=== PATIENT | female | born 1985 | race Caucasian/White ===

== ENCOUNTER 2018-08-11 11:39 | Observation (INO) | payer OTHER ==
[2018-08-11 13:19] LABS: Absolute Lymphocytes (CBC) 1.3 K/uL (0.7-4.9); Absolute Monocytes 0.6 K/uL (0.1-1.3); Absolute Neutrophil 5.6 K/uL (1.8-8.0); Basophils % 0.3 % (0-1.3); Eosinophils % 1.3 % (0-4.4); Hematocrit 43.6 % (36.0-45.0); Lymphocytes % 16.8 % (15.3-44.8); MPV 9.3 fL (7.6-11.3); Monocytes % 7.6 % (3.3-12.3); RBC Red Blood Cell Count 4.74 M/uL (3.86-4.86)
[2018-08-11] MEDS ORDERED: NA CHLORIDE 0.9% 1,000 ML ONE (13:26)
[2018-08-11 13:33] LABS: ALT/SGPT 17 U/L (12-78); AST/SGOT 15 U/L (15-37); Albumin 3.9 g/dL (3.4-5.0); Alkaline Phosphatase 66 U/L (45-117); BUN Blood Urea Nitrogen 9 mg/dL (7-18); Bicarbonate 25 mmol/L (21-32); Bilirubin Direct < 0.1 mg/dL (0-0.2); Bilirubin Total 0.3 mg/dL (0.2-1.0); Glucose Level 83 mg/dL (74-106); Potassium 3.8 mmol/L (3.5-5.1); Protein, Total 7.8 g/dL (6.4-8.2); Sodium Level 142 mmol/L (136-145)
[2018-08-11] MEDS ORDERED: WATER FOR INJ,STERILE 0 ML ONE (14:14)
--- NOTE | 2018-08-11 14:23 | ER ---
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 Transition of care: patient was not received from another setting of care. No acute neurological deficit is noted. Onset of symptoms was August 11, 2018. Risk Assessment: Do you want to hurt yourself or someone else? Patient reports no desire to harm self or others. Initial Sepsis Screen: Does the patient meet any 2 criteria? No. Patient's initial sepsis screen is negative. Does the patient have a suspected source of infection? No. Patient's initial sepsis screen is negative. Care prior to arrival: None. 11:41 Method Of Arrival: Ambulatory 11:41 Acuity: ELIAEN 3 Triage Assessment: 11:50 General: Appears in no apparent distress. comfortable, obese, well groomed, Behavior is ae4 calm, cooperative. Pain: Denies pain. Neuro: Level of Consciousness is awake, alert, obeys commands, Oriented to person, place, time, situation, Appropriate for age. Respiratory: Airway is patent Respiratory effort is even, unlabored, Respiratory pattern is regular, symmetrical. 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 - Social history:: The patient lives at home, Smoking status: Patient/guardian denies using tobacco. - Ebola Screening: : Patient negative for fever greater than or equal to 101.5 degrees Fahrenheit, and additional compatible Ebola Virus Disease symptoms Patient denies exposure to infectious person Patient denies travel to an Ebola-affected area in the 21 days before illness onset. Screenin:40 Abuse screen: Denies threats or abuse. Nutritional screening: No deficits noted. ae4 Tuberculosis screening: No symptoms or risk factors identified. Fall Risk Fall in past 12 months (25 points). Secondary diagnosis (15 points) Patient deb hx of MS.. IV access (20 points). Ambulatory Aid- Crutches/Cane/Walker (15 pts). Gait- Weak (10 pts.). Mental Status- Oriented to own ability (0 pts). Assessment: 16:09 Reassessment: Patient states IV to the right AC is painful. Redness near insertion site ae4 noted. Pain upon flushing at insertion site. IV removed and new IV placed to left AC. Patient denies pain at this time. Patient states feeling better. 16:57 Reassessment: Called 2nd floor to give report to receiving nurse, spoke to Akiko. Akiko silverman4 states Kamila, the receiving nurse will need to return call shortly. 16:59 Reassessment: Patient appears in no apparent distress at this time. Patient and/or ae4 family updated on plan of care and expected duration. Pain level reassessed. 17:32 Reassessment: Report called to Kamila receiving nurse. ae4 Vital Signs: 11:48 BP 124 / 87; Pulse 106; Resp 18; Temp 98.4(O); Pulse Ox 100% on R/A; Weight 122.47 kg; Height 5 ft. 9 in. (175.26 cm); Pain 0/10; 13:42 BP 106 / 70; Pulse 104; Resp 16; Pulse Ox 100% on R/A; ae4 16:16 BP 127 / 91; Pulse 93; Resp 15; Pulse Ox 99% on R/A; ae4 17:48 BP 116 / 85; Pulse 113; Resp 19; Pulse Ox 100% on R/A; ae4 11:48 Body Mass Index 39.87 (122.47 kg, 175.26 cm) NIH Stroke Scale Scores: 14:23 NIHSS Score: 0 gs ED Course: 11:41 Patient arrived in ED. 11:44 Triage completed. 11:49 EKG done, by instrumentation tech. reviewed by Eulalio Carmen MD. at1 11:50 Arm band placed on right wrist. hj 12:42 Henry Dupree, MARK is Primary Nurse. ae4 12:42 Eulalio Carmen MD is Attending Physician. gs 12:55 Placed in gown. Bed in low position. Call light in reach. Side rails up X 1. Cardiac ae4 monitor on. Pulse ox on. NIBP on. 12:59 Inserted saline lock: 22 gauge in right antecubital area, using aseptic technique. jb1 Blood collected. 14:21 Edelmira Sauer MD is Hospitalizing Provider. gs 14:55 Patient moved to MRI. ae4 16:09 Inserted saline lock: 22 gauge in left antecubital area, using aseptic technique. ae4 17:34 Patient admitted, IV remains in place. ae4 17:48 No provider procedures requiring assistance completed. ae4 Administered Medications: 13:17 Drug: NS 0.9% 1000 ml Route: IV; Rate: 125 ml/hr; Site: right antecubital; ae4 14:33 Drug: SOLU-Medrol 1000 mg Route: IVP; Site: right antecubital; ae4 22:21 Follow up: Response: No adverse reaction ae4 Outcome: 14:22 Decision to Hospitalize by Provider. gs 17:49 Admitted to Med/surg ae4 17:49 Condition: stable 17:49 Condition: improved 17:49 Discharge instructions given to patient, significant other, Instructed on the need for admit, Demonstrated understanding of instructions. 17:51 Patient left the ED. ae4 NIH Stroke Scale - NIH Stroke Score Date: 08/11/2018 Time: 14:23 Total Score = 0 1a. Level of Consciousness (LOC) - 0(Alert) 1b. Level of Consciousness (LOC) (Year \T\ Age) - 0(Both) 1c. LOC Commands (Open \T\ Closes Eyes/Associate Professor [employer] Media Arts) - 0(Both) 2. Best Gaze (Lateral Gaze Paresis) - 0(Normal) 3. Visual Field Loss - 0(No visual loss) 4. Facial Palsy - 0(Normal) 5a. Left Arm: Motor (10-second hold) - 0(No drift) 5b. Right Arm: Motor (10-second hold) - 0(No drift) 6a. Left Leg: Motor (5-second hold - always test supine) - 0(No drift) 6b. Right Leg: Motor (5-second hold - always test supine) - 0(No drift) 7. Limb Ataxia (finger/nose \T\ heel/ellis - test with eyes open) - 0(Absent) 8. Sensory Loss (pinprick arms/legs/face) - 0(Normal) 9. Best Language: Aphasia (description/naming/reading) - 0(No aphasia) 10. Dysarthria (speech clarity - read or repeat words) - 0(Normal) 11. Extinction and Inattention (visual/tactile/auditory/spatial/personal) - 0(No abnormality) Initials: Signatures: Sunil Adams jb1 Isabella Yañez, facing machine operator EKG Tat1 Ede Dan RN RN Eulalio Carmen MD MD Henry Dupree RN RN ae4 Corrections: (The following items were deleted from the chart) 11:50 11:41 Presenting complaint: Patient states: i think i have an MS flare up, Saturday, it started it twinges on my arms and mis coordination, dizzy and slurred speech; hx of MS; denies fever and chills; 11:51 11:41 Presenting complaint: Patient states: i think i have an MS flare up, Saturday, it started it twinges on my arms and mis coordination, dizzy and slurred speech; hx of MS; denies fever and chills; 11:53 11:41 Presenting complaint: Patient states: i think i have an MS flare up, Saturday, it started it twinges on my arms and mis coordination, dizzy and slurred speech; hx of MS; denies fever and chills; 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 Akiko states Kamila, the receiving nurse will need to return call shortly. ae4
--- NOTE | 2018-08-11 14:23 | EDPHYS ---
Physician Documentation [facility] Name: Emmanuelle Spencer Age: 33 yrs Sex: Female : 1985 Arrival Date: 08/11/2018 Time: 11:41 Bed 15 Private MD: ED Physician Eulalio Carmen HPI: 08/11 14:23 This 33 yrs old Female presents to ER via Ambulatory with complaints of gs Slurred Speech, Dizziness. 14:23 Onset: The symptoms/episode began/occurred 1 week(s) ago. Associated signs and gs symptoms: Pertinent negatives: fever. Associated signs and symptoms: Pertinent positives: altered mental status, non now, per intermittent confusion. Severity of symptoms: At their worst the symptoms were severe in the emergency department the symptoms have improved markedly. The patient has experienced similar episodes in the past, multiple times. 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 - Social history:: The patient lives at home, Smoking status: Patient/guardian denies using tobacco. - Ebola Screening: : Patient negative for fever greater than or equal to 101.5 degrees Fahrenheit, and additional compatible Ebola Virus Disease symptoms Patient denies exposure to infectious person Patient denies travel to an Ebola-affected area in the 21 days before illness onset. ROS: 14:23 All other systems are negative. gs Exam: 14:23 Head/Face: Normocephalic, atraumatic. Eyes: Pupils equal round and reactive to light, gs extra-ocular motions intact. Lids and lashes normal. Conjunctiva and sclera are non-icteric and not injected. Cornea within normal limits. Periorbital areas with no swelling, redness, or edema. ENT: Nares patent. No nasal discharge, no septal abnormalities noted. Tympanic membranes are normal and external auditory canals are clear. Oropharynx with no redness, swelling, or masses, exudates, or evidence of obstruction, uvula midline. Mucous membranes moist. Neck: Trachea midline, no thyromegaly or masses palpated, and no cervical lymphadenopathy. Supple, full range of motion without nuchal rigidity, or vertebral point tenderness. No Meningismus. Chest/axilla: Normal chest wall appearance and motion. Nontender with no deformity. No lesions are appreciated. Cardiovascular: Regular rate and rhythm with a normal S1 and S2. No gallops, murmurs, or rubs. Normal PMI, no JVD. No pulse deficits. Respiratory: Lungs have equal breath sounds bilaterally, clear to auscultation and percussion. No rales, rhonchi or wheezes noted. No increased work of breathing, no retractions or nasal flaring. Abdomen/GI: Soft, non-tender, with normal bowel sounds. No distension or tympany. No guarding or rebound. No evidence of tenderness throughout. Back: No spinal tenderness. No costovertebral tenderness. Full range of motion. Skin: Warm, dry with normal turgor. Normal color with no rashes, no lesions, and no evidence of cellulitis. MS/ Extremity: Pulses equal, no cyanosis. Neurovascular intact. Full, normal range of motion. Neuro: Awake and alert, GCS 15, oriented to person, place, time, and situation. Cranial nerves II-XII grossly intact. Motor strength 5/5 in all extremities. Sensory grossly intact. Cerebellar exam normal. Normal gait. 14:23 Constitutional: The patient appears alert, awake. Vital Signs: 11:48 BP 124 / 87; Pulse 106; Resp 18; Temp 98.4(O); Pulse Ox 100% on R/A; Weight 122.47 kg; Height 5 ft. 9 in. (175.26 cm); Pain 0/10; 13:42 BP 106 / 70; Pulse 104; Resp 16; Pulse Ox 100% on R/A; ae4 16:16 BP 127 / 91; Pulse 93; Resp 15; Pulse Ox 99% on R/A; ae4 17:48 BP 116 / 85; Pulse 113; Resp 19; Pulse Ox 100% on R/A; ae4 11:48 Body Mass Index 39.87 (122.47 kg, 175.26 cm) NIH Stroke Scale Scores: 14:23 NIHSS Score: 0 MDM: 12:59 Patient medically screened. 14:23 Data reviewed: vital signs, nurses notes, lab test result(s). Physician consultation: Ramone Madrid MD and will see patient in ED. 14:29 ED course: no tpa, no stroke . 08/11 13:01 Order name: CBC with Diff 08/11 13:01 Order name: Basic Metabolic Panel 08/11 13:01 Order name: LFT's 08/11 13:25 Order name: CBC with Automated Diff; Complete Time: 13:34 EDMS 08/11 13:35 Order name: Basic Metabolic Panel; Complete Time: 13:34 EDMS 08/11 13:35 Order name: Liver (Hepatic) Function; Complete Time: 13:34 EDMS 08/11 14:15 Order name: Urinalysis ae4 08/11 14:29 Order name: Urinalysis; Complete Time: 16:16 EDMS 08/11 14:30 Order name: Urine Dipstick--Ancillary (enter results) 08/11 14:30 Order name: Urine --Ancillary (enter results) 08/11 14:36 Order name: Urine Microscopic Only; Complete Time: 16:16 EDMS 08/11 14:43 Order name: Urine --Ancillary; Complete Time: 16:16 EDMS 08/11 14:43 Order name: Urine Dipstick-Ancillary; Complete Time: 16:16 EDMS 08/11 14:55 Order name: Test, Urine; Complete Time: 16:16 EDMS 08/11 16:00 Order name: MRI; Complete Time: 16:16 EDMS Administered Medications: 13:17 Drug: NS 0.9% 1000 ml Route: IV; Rate: 125 ml/hr; Site: right antecubital; ae4 14:33 Drug: SOLU-Medrol 1000 mg Route: IVP; Site: right antecubital; ae4 22:21 Follow up: Response: No adverse reaction ae4 Disposition: 08/11/18 14:22 Hospitalization ordered by Edelmira Sauer for Observation. Preliminary diagnosis is Multiple sclerosis. - Bed requested for Telemetry/MedSurg (observation). - Status is Observation. ae4 - Condition is Stable. - Problem is new. - Symptoms have improved. UTI on Admission? Yes NIH Stroke Scale - NIH Stroke Score Date: 08/11/2018 Time: 14:23 Total Score = 0 1a. Level of Consciousness (LOC) - 0(Alert) 1b. Level of Consciousness (LOC) (Year \T\ Age) - 0(Both) 1c. LOC Commands (Open \T\ Closes Eyes/Betting Agency Manager) - 0(Both) 2. Best Gaze (Lateral Gaze Paresis) - 0(Normal) 3. Visual Field Loss - 0(No visual loss) 4. Facial Palsy - 0(Normal) 5a. Left Arm: Motor (10-second hold) - 0(No drift) 5b. Right Arm: Motor (10-second hold) - 0(No drift) 6a. Left Leg: Motor (5-second hold - always test supine) - 0(No drift) 6b. Right Leg: Motor (5-second hold - always test supine) - 0(No drift) 7. Limb Ataxia (finger/nose \T\ heel/ellis - test with eyes open) - 0(Absent) 8. Sensory Loss (pinprick arms/legs/face) - 0(Normal) 9. Best Language: Aphasia (description/naming/reading) - 0(No aphasia) 10. Dysarthria (speech clarity - read or repeat words) - 0(Normal) 11. Extinction and Inattention (visual/tactile/auditory/spatial/personal) - 0(No abnormality) Initials: Signatures: Dispatcher [employer] EDMS Rachel Randhawa Henry RN MARK hj Eulalio Carmen MD MD Henry Dupree RN RN ae4 Corrections: (The following items were deleted from the chart) 16:36 14:22 Hospitalization Ordered by Edelmira Sauer MD for Observation. Preliminary bd diagnosis is Multiple sclerosis. Bed requested for Telemetry/MedSurg (observation). Status is Observation. Condition is Stable. Problem is new. Symptoms have improved. UTI on Admission? Yes. 17:51 16:36 08/11/2018 14:22 Hospitalization Ordered by Edelmira Sauer MD for ae4 Observation. Preliminary diagnosis is Multiple sclerosis. Bed requested for Telemetry/MedSurg (observation). Status is Observation. Condition is Stable. Problem is new. Symptoms have improved. UTI on Admission? Yes. bd
[2018-08-11 14:28] LABS: Urine Appearance CLOUDY; Urine Bilirubin NEGATIVE (NEG); Urine Blood NEGATIVE (NEG); Urine Color YELLOW; Urine Glucose NEGATIVE (NEG); Urine Protein NEGATIVE (NEG)
[2018-08-11 14:29] LABS: Urine Microscopic Reflex ORDER UMIC
[2018-08-11 14:36] LABS: Urine Bacteria >50 /HPF (<20); Urine Culture Reflex Order REFLEXED; Urine Mucus 1+ /HPF (NONE SEEN); Urine RBC <5 /HPF (NONE SEEN)
--- NOTE | 2018-08-11 14:38 | P.HP ---
Certification for Inpatient Patient admitted to: Observation With expected LOS: <2 Midnights Practitioner: I am a practitioner with admitting privileges, knowledge of patient current condition, hospital course, and medical plan of care. Services: Services provided to patient in accordance with Admission requirements found in Title 42 Section 412.3 of the Code of Federal Regulations Patient History Date of Service: 08/11/18 Reason for admission: right sided weakness, slurred speech History of Present Illness: Patient is a 33-year-old female with past medical history of Guillain-[place] syndrome and multiple sclerosis who was in her usual state of health until 1 week prior to admission when the patient had symptoms of sinus infection and was treated for ear infection with oral antibiotics for 1 week. Patient now has been experiencing worsening weakness with difficulty holding things in her right hand difficulty finding words and start speech along with intermittent confusion. Patient has been on Tacfidera with good response. Patient contacted primary neurologist today and was recommended to go to the ER for further evaluation and treatment. In the ER her vital signs were stable she was slightly tachycardic. Her workup revealed normal WBC count no electrolyte abnormalities. Patient was then referred for admission. When seen in the ER she was awake alert oriented x3 having word-finding difficulty and slurred speech. 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 - Family History Father -: Hypertension - Social History Smoking Status: Never smoker Alcohol use: No CD- Drugs: No Caffeine use: No Place of Residence: Home Review of Systems 10-point ROS is otherwise unremarkable Neurological: As per HPI Physical Examination - Vital Signs Temperature: 98.4 F Blood Pressure: 124/87 Pulse: 106 Respirations: 18 Pulse Ox (%): 100 - Physical Exam General: Alert, In no apparent distress, Oriented x3, Obese HEENT: Atraumatic, PERRLA, Mucous membr. moist/pink, EOMI, Sclerae nonicteric Neck: Supple, 2+ carotid pulse no bruit, JVD not distended Respiratory: Clear to auscultation bilaterally, Normal air movement Cardiovascular: No edema, Normal pulses, Regular rate/rhythm, Normal S1 S2 Gastrointestinal: Normal bowel sounds, Soft and benign, Non-distended, No tenderness Musculoskeletal: No clubbing, No tenderness Integumentary: No rashes, No erythema Neurological: Normal tone, Cranial nerves 3-12 intact, Normal affect, Abnormal gait, Abnormal speech, Abnormal strength - Studies Laboratory Data (last 24 hrs) 08/11/18 12:54: Sodium 142, Potassium 3.8, BUN 9, Creatinine 0.86, Glucose 83, Total Bilirubin 0.3, AST 15, ALT 17, Alkaline Phosphatase 66 08/11/18 12:54: WBC 7.6, Hgb 14.5, Hct 43.6, Plt Count 220 Assessment and Plan - Problems (Diagnosis) (1) Acute relapsing multiple sclerosis Current Visit: Yes Status: Acute (2) Obesity Current Visit: Yes Status: Acute Qualifiers: Obesity type: due to excess calories - Plan Patient has intermittent confusion, right sided weakness, slurred speech and word finding difficulty. Patient needs imaging to rule out CVA. Start on high-dose IV steroids 1000 mg of Solu-Medrol daily for MS exacerbation. Consult Neurology MRI of the brain with and without contrast. Check test Neuro checks every 4 hr PT eval - Advance Directives Does patient have a Living Will: No Does patient have a Durable POA for Healthcare: No
[2018-08-11 14:39] LABS: Urine Blood NEGATIVE (NEG); Urine Glucose NEGATIVE (NEG); Urine Protein NEGATIVE (NEG); Urine Specific Gravity 1.015 (1.005-1.030)
[2018-08-11] MEDS ORDERED: METHYLPRED NA SUC 1,000 MG in NA CHLORIDE 0.9% 100 ML IV ONE (15:00)
--- NOTE | 2018-08-11 15:02 | EKG ---
Test Date: 2018-08-11 Test Time: 11:48:13 Sandblast Carver: ALONSO MEASUREMENT RESULTS: Intervals: Rate: 119 RI: 162 QRSD: 84 QT: 330 QTc: 464 [place]: P: 63 RI: 162 QRS: 33 T: 47 INTERPRETIVE STATEMENTS: Sinus tachycardia Cannot rule out Anterior infarct, age undetermined Abnormal ECG No previous ECG available for comparison Electronically Signed On 08-11-18 15:01:49 CDT by Nigel Car
--- NOTE | 2018-08-11 15:56 | RAD REPORT ---
EXAM DESCRIPTION: MRI - Brain W/Wo Cont - 08/11/2018 3:30 pm CLINICAL HISTORY: Ataxia/multiple sclerosis COMPARISON: 2014 MRI TECHNIQUE: Axial, sagittal, and coronal magnetic images of the brain were obtained. 20 cc MultiHance administered intravenously FINDINGS: Within the anterior subcortical white matter of the right frontal lobe there has been deve lopment of a 1 centimeter area of abnormal signal. Within the posterior subcortical white matter of t he right frontal lobe there has been development of an 18 millimeter area of abnormal signal. An amada tional smaller area of abnormal signal has developed within the subcortical white matter of the right frontal lobe. All of these areas demonstrate some enhancement. Additional 12 millimeter area of abnormal signal is present within the right posterior aspect of the jean-pierre which demonstrates enhancement No significant change in mild to moderate areas of abnormal signal within periventricular and deep wh ite matter bilaterally. Diffusion-weighted sequences do not demonstrate evidence of an acute infarction. An extra-axial fluid collection is not noted. Fluid within the sinuses/mastoids is not seen IMPRESSION: Development of abnormal signal within the subcortical white matter of the right frontal lobe and posterior jean-pierre which demonstrates enhancement most likely representing active plaques of mul tiple sclerosis No significant change in additional bilateral plaques
[2018-08-11] MEDS: NA CHLORIDE 0.9% 1,000 ML IV SCH ×2 (18:03→23:35)
[2018-08-11] MEDS: INSULIN -REGULAR HUMAN 50 UNIT/0.5 ML ML SQ SCH ×2 (18:03→21:00)
[2018-08-11] MEDS ORDERED: ONDANSETRON 4 MG/2 ML VIAL IV PRN (18:03)
[2018-08-11] MEDS ORDERED: GLUCAGON 1 MG/VIAL IM PRN (18:03)
[2018-08-11] MEDS ORDERED: ACETAMINOPHEN 500 MG TAB PO PRN (18:03)
[2018-08-11] MEDS ORDERED: D50W 25 GM/50 ML SYRINGE IV PRN (18:03)
[2018-08-11 18:11] VITALS: BMI 36.7
[2018-08-11] MEDS ORDERED: POTASSIUM CL SA 10 MEQ TAB PO ONE ×2 (18:24→21:00)
--- NOTE | 2018-08-11 19:33 | CON ---
Date of Consultation: 08/11/2018 Time: 1430 Reason For Consultation: Multiple sclerosis. History: A 33-year-old lady with past medical history of Guillain-[place] many years ago, left her wit h footdrop and some residual facial weakness, developed multiple sclerosis several years ago. She barfield s been relatively stable on Tecfidera. She has some residual gait dysfunction and normally ambulates with a cane. About 3 weeks ago, she developed an ear infection with drainage, had a round of antibi otics and then some steroids and that problem seem to be improving. She had some intermittent vertig o related to that, but no other sequela and then beginning about 3 or 4 days ago, she developed some intermittent confusion and word-finding problems with clumsiness and weakness to the right upper extr emity that is new. She called me, advised her to me to the emergency department for evaluation. Lab oratory data in the emergency department is unremarkable. CBC is normal. Absolute lymphocyte 1.3. Electrolytes are normal. UA is still pending. She does have some intermittent word-finding problems and some clumsiness right upper extremity concerning for a possible mild exacerbation of her MS, so she is going to be placed on observation for a brain MRI to evaluate that possibility in more detail. Past Medical History: As alluded to. Medications: Baclofen and Tecfidera . Allergies: DEMEROL. Social History: , employed, normally independent with basic activities of daily living. Does generally ambulate with a cane. Family History: Noncontributory. Review of Systems: General: Good health up until now. Eyes: Negative. Ears, Nose, Throat: Recent ear infection as alluded to. Cardiovascular: Negative. Pulmonary: Negative. GI: Negative. : Negative. Musculoskeletal: Negative. Neurologic: As noted. Psychiatric: Negative. Endocrine: Negative. Hematologic: Negative. Physical Examination: Vital Signs: She is afebrile. Vitals are stable. General: She is awake, alert, oriented. Some intermittent word-finding problems and slight dysarthr ia which is new. HEENT: Pupils reactive. Ocular motion full. [place] full. Facial synkinesis on the right more selena g standing. Tympanic membranes clear. Neck: Supple. Extremities: Examination of her extremities reveals 4/5 bilateral hip flexor weakness, foot drop on the left, 2/5 dyspraxia, slow rapid alternating movements. Right hand sensation decreased distally, reflexes 1/4, toes are silent. Gait is residual, spastic, myelopathic. Cerebellar exam demonstrates no ataxia. Pertinent Labs: As alluded to. Impression: Dysarthria, new right hemiparesis in the setting of a patient with known multiple sclero sis concerning for mild flare up of her MS. Plan: Labs look fine. We would continue Solu-Medrol 1 g IV daily. Brain MRI with and without contr ast. Thank you for the consult. We will continue to follow with you. JERSEY/SHANTI Voice ID: [id number] Report ID: [id number]
[2018-08-11] MEDS ORDERED: METHYLPRED NA SUC 1,000 MG in NA CHLORIDE 0.9% 100 ML IV SCH (20:00)
[2018-08-11] MEDS ORDERED: CEFTRIAXONE/SWI 1gm 1 GM/10 ML SYR ONE (20:30)
[2018-08-11] MEDS: ENOXAPARIN 40 MG/0.4 ML SQ SCH (20:30)
[2018-08-11] MEDS ORDERED: CEFTRIAXONE 1 GM/NS 50 ML 1 GM/50 ML BAG IV SCH (21:00)
[2018-08-12] MEDS: NA CHLORIDE 0.9% 1,000 ML IV SCH ×4 (04:03→20:38)
[2018-08-12 06:26] LABS: Absolute Lymphocytes (CBC) 0.9 K/uL (0.7-4.9); Absolute Monocytes 0.1 K/uL (0.1-1.3); Absolute Neutrophil 8.5 K/uL (1.8-8.0); Hematocrit 39.7 % (36.0-45.0); Lymphocytes % 9.2 % (15.3-44.8); MPV 9.5 fL (7.6-11.3); Monocytes % 1.2 % (3.3-12.3); RBC Red Blood Cell Count 4.35 M/uL (3.86-4.86)
[2018-08-12 06:36] LABS: ALT/SGPT 14 U/L (12-78); AST/SGOT 16 U/L (15-37); Albumin 3.6 g/dL (3.4-5.0); Alkaline Phosphatase 62 U/L (45-117); BUN Blood Urea Nitrogen 10 mg/dL (7-18); Bicarbonate 22 mmol/L (21-32); Bilirubin Total 0.2 mg/dL (0.2-1.0); Glucose Level 141 mg/dL (74-106); Protein, Total 7.1 g/dL (6.4-8.2); Sodium Level 141 mmol/L (136-145)
[2018-08-12] MEDS: INSULIN -REGULAR HUMAN 50 UNIT/0.5 ML ML SQ SCH ×2 (07:30→19:30)
[2018-08-12] MEDS: ENOXAPARIN 40 MG/0.4 ML SQ SCH (08:52)
[2018-08-12] MEDS: METHYLPRED NA SUC 1,000 MG in NA CHLORIDE 0.9% 100 ML IV SCH (08:52)
[2018-08-12 08:53] LABS: Blood Morphology Comment NOT SEEN (NOT SEEN); Platelet Estimate ADEQ
[2018-08-12] MEDS ORDERED: METHYLPREDNISOLONE 40 MG INJ IV SCH (09:00)
--- NOTE | 2018-08-12 14:16 | P.PN ---
Subjective Date of Service: 08/12/18 Chief Complaint: right sided weakness, slurred speech Subjective: Improving Patient seen and examined at bedside. at bedside. Chart reviewed and case discussed with nursing staff. Patient reports drastic improvement. Speech improved though not back to baseline yet. Right arm weakness also improved though not back to baseline Review of Systems 10-point ROS is otherwise unremarkable Physical Examination - Vital Signs Temperature: 100.0 F Blood Pressure: 121/73 Pulse: 92 Respirations: 18 Pulse Ox (%): 97 - Physical Exam General: Alert, In no apparent distress, Oriented x3 HEENT: Atraumatic, PERRLA, EOMI Neck: Supple, JVD not distended Respiratory: Clear to auscultation bilaterally, Normal air movement Cardiovascular: Regular rate/rhythm, Normal S1 S2 Gastrointestinal: Normal bowel sounds, No tenderness Musculoskeletal: No tenderness Integumentary: No rashes Neurological: Normal speech, Normal tone, Normal affect Lymphatics: No axilla or inguinal lymphadenopathy Assessment And Plan - Current Problems (Diagnosis) (1) Acute relapsing multiple sclerosis Current Visit: Yes Status: Acute Plan: Symptomatic improvement - not back to baseline though MRI negative for acute CVA Dr. Madrid on board, recommendations apprecitaed Continue IV steroids. Will discuss with Neuro regarding Tecfidera Awaiting physical therapy (2) Obesity Current Visit: Yes Status: Acute Qualifiers: Obesity type: due to excess calories - Plan DVT prophylaxis: Lovenox Diet: Regular Disposition: Pending symptomatic improvement. Possible discharge in the next 24 hours.
[2018-08-12] MEDS ORDERED: CEFTRIAXONE 1 GM/NS 50 ML 1 GM/50 ML BAG IV SCH (17:53)
[2018-08-12] MEDS ORDERED: CEFTRIAXONE/SWI 1gm 1 GM/10 ML SYR IV SCH (21:00)
[2018-08-12 23:01] VITALS: O2SAT 93
[2018-08-13] MEDS: NA CHLORIDE 0.9% 1,000 ML IV SCH ×2 (00:03→05:03)
--- NOTE | 2018-08-13 01:58 | CON ---
Date of Consultation: 08/12/2018 Time: 1929. Reason: MS exacerbation. Interval History: The patient is improved quite a bit. Speech is better. Arm clumsiness is better. Brain MRI demonstrates a 1-cm area of abnormal signal in right frontal lobe as well as a juxtacortical lesion on the right and a small deep white matter lesion on the right with very small area of enhancement in the posterior lateral jean-pierre and pontomedullary junction, which enhances. None of the other lesions seem to have changed. She is improving as noted. I think continue the steroids for one more day and then she can probably go home. Plan would be to at least let her go back home on the Tecfidera that may need to be upgraded to a more aggressive intervention. We want to keep her on an oral agent, perhaps Gilenya or change sugar to intravenous monoclonal antibody like Ocrevus or . The monoclonal antibodies given there. Route of administration, IV, obviously will require longer lead in coordination, any of those medications are going to require additional insurance approval, so we will not be able to make any substantial medication changes associated with this visit. In this admission it is not unreasonable, however, to just continue the present medication. Post discharge with closed outpatient monitoring and followup as 4 years without any active disease until recently is not really definition of medication failure. Physical Examination: Neurologic: She is awake, alert, oriented. No ocular palsies. Pupils reactive. Ocular motion full. [place] full. Dysarthria has nearly resolved. Slight stuttering still. Extremities are back to baseline with a footdrop on the left. Sensation intact. Reflexes symmetric. Toes are neutral. Cerebellar exam demonstrates no [id number] ataxia. Pertinent Labs: MRI as noted. White count 9.5. Glucose 141. Creatinine normal 0.61. Impression: MS exacerbation, improving. Plan: One more day of IV steroids and then she can likely safely be discharged to home with close outpatient followup. She has a followup in the office just next week, so the timing on that has fairly good, and we will have additional discussions regarding disease-modifying therapy then with emphasis on drugs as noted. Thank you for the consult. We will continue to follow with you. TARA Voice ID: [id number] Report ID: [id number] MTDD
[2018-08-13] MEDS: INSULIN -REGULAR HUMAN 50 UNIT/0.5 ML ML SQ SCH (07:30)
[2018-08-13 08:55] VITALS: BP 114/67; TEMP 97.6
[2018-08-13] MEDS: METHYLPRED NA SUC 1,000 MG in NA CHLORIDE 0.9% 100 ML IV SCH (08:58)
[2018-08-13] MEDS: ENOXAPARIN 40 MG/0.4 ML SQ SCH (08:59)
--- NOTE | 2018-08-13 10:20 | P.SSS ---
Patient History Date of Service: 08/13/18 Reason for admission: right sided weakness, slurred speech History of Present Illness: Patient is a 33-year-old female with past medical history of Guillain-Jefferson syndrome and multiple sclerosis who was in her usual state of health until 1 week prior to admission when the patient had symptoms of sinus infection and was treated for ear infection with oral antibiotics for 1 week. Patient now has been experiencing worsening weakness with difficulty holding things in her right hand difficulty finding words and start speech along with intermittent confusion. Patient has been on Tacfidera with good response. Patient contacted primary neurologist today and was recommended to go to the ER for further evaluation and treatment. In the ER her vital signs were stable she was slightly tachycardic. Her workup revealed normal WBC count no electrolyte abnormalities. Patient was then referred for admission. When seen in the ER she was awake alert oriented x3 having word-finding difficulty and slurred speech. Allergies meperidine HCl [From Demerol] Adverse Reaction (Verified 08/11/18 20:28) combativeness Home medications list reviewed: Yes Home Medications: Azelastine [Astelin 137MCG/Metered [place]*] 1 spray URI BID 08/11/18 Ciprofloxacin HCl 500 mg PO DAILY #5 tablet 08/13/18 - Past Medical/Surgical History Has patient received pneumonia vaccine in the past: No Diabetic: No -: BLOOD SUGAR LEVELS ARE RUNNING HIGH -: HX OF BELLS PALSY -: HX OF GUILLION-BARRE SYNDROME -: MS -: UTI -: HTN -: FEEDING TUBE & REVERSAL -: TRACH AND REVERSAL Psychosocial/ Personal History: . - Family History Father -: Hypertension - Social History Smoking Status: Never smoker Alcohol use: No CD- Drugs: No Caffeine use: No Place of Residence: Home Review of Systems 10-point ROS is otherwise unremarkable Physical Examination - Vital Signs Temperature: 97.6 F Blood Pressure: 114/67 Pulse: 73 Respirations: 20 Pulse Ox (%): 100 - Physical Exam General: Alert, In no apparent distress, Oriented x3 HEENT: Atraumatic, PERRLA, Mucous membr. moist/pink, EOMI, Sclerae nonicteric Neck: Supple, 2+ carotid pulse no bruit, No LAD, Without JVD or thyroid abnormality Respiratory: Clear to auscultation bilaterally, Normal air movement Cardiovascular: Regular rate/rhythm, Normal S1 S2 Gastrointestinal: Normal bowel sounds, No tenderness Musculoskeletal: No tenderness Integumentary: No rashes Neurological: Normal gait, Normal speech, Normal strength at 5/5 x4 extr, Normal tone, Normal affect Lymphatics: No axilla or inguinal lymphadenopathy - Diagnosis (Problem(s)) (1) Acute relapsing multiple sclerosis Current Visit: Yes Status: Acute (2) Obesity Current Visit: Yes Status: Acute Qualifiers: Obesity type: due to excess calories Treatment Summary: Patient was admitted for intermittent confusion, right-sided weakness, slurred speech and word-finding difficulty. And MRI was negative for acute CVA. She was started on high-dose IV steroids as this was thought to be secondary to multiple sclerosis exacerbation/flare-up. Her primary neurologist was consulted who saw the patient in the hospital. Patient's symptoms improved with the steroids. Patient was found to have a urinary tract infection, was started on antibiotics and urine cultures were positive for E. coli. E. coli was sensitive to ciprofloxacin, therefore patient was discharged home on oral ciprofloxacin. Her Techfidera was also discontinued on discharge, per neurology. Patient already has an appointment scheduled with her primary neurologist next week, were medication changes will be made in his clinic. Patient did well with physical therapy and throughout the stay. Prior to discharge, patient was alert oriented x3, her symptoms had completely resolved and she was hemodynamically stable. She was able to ambulate without problems, tolerating oral diet and working well with physical therapy. Her diagnoses and treatment plan were explained to her, all questions were answered and patient verbalized understanding. She was then discharged home in a safe and stable manner with instructions to follow up with neurology on her scheduled appointment. - Disposition Discharge Date: 08/13/18 Disposition: ROUTINE DISCHARGE Condition: GOOD Consultations: Neurology Patient Discharge Instructions: Please follow up with the primary care physician in 2-3 days. Please follow up with Dr. Madrid as your scheduled appointment. Please discontinue Tecfidera, as discussed with your neurologist. Please return to the emergency room for worsening symptoms. New medication: Ciprofloxacin, an antibiotic for urinary tract infection. Diet: Regular Activity: Ad clau Time Spent Managing Pts Care (In Minutes): 55
== END 2018-08-13 12:12 | disposition home or self-care (01) ==
LOC: ER 11:39 → ERHOLD 13:50 → 2ND 17:34
PROVIDERS: ADMIT Family Medicine; ATTEND Family Medicine
DX: G35 Multiple sclerosis (principal); E66.9 Obesity, unspecified; Z68.36 Body mass index [BMI] 36.0-36.9, adult; N39.0 Urinary tract infection, site not specified; B96.20 Unspecified Escherichia coli [E. coli] as the cause of diseases classified elsewhere
CPT/HCPCS: 36415; 70553; 80048; 80053; 80076; 81003; 81015; 81025; 82962; 83735; 85025; 87077; 87086; 87088; 87186; 93005; 94760; 96374; 97112; 97116; 97162; 99285; A9577; G0378; J0696; J1650; J2930; J7030